=== PATIENT | male | born 1960 | race Caucasian/White ===

== ENCOUNTER 2016-11-20 05:57 | Day surgery (SDC) | payer OTHER ==
[~2016-11-20] VITALS: Ht 195.6 cm; Wt 78.0 kg
[2016-11-20] MEDS ORDERED: LACTATED RINGERS 1,000 ML IV SCH (06:18)
[2016-11-20 06:19] VITALS: BP 125/79
[2016-11-20] MEDS ORDERED: LIDOCAINE 1%, 2ML SQ PRN (06:30)
[2016-11-20] MEDS ORDERED: OMEG1CAP34 PO (06:42)
[2016-11-20] MEDS ORDERED: CHOL500014 PO (06:42)
[2016-11-20] MEDS ORDERED: ASPI-496 PO (06:42)
[2016-11-20] MEDS ORDERED: MUPIROCIN OINT 2%, 22GM ONE (06:47)
[2016-11-20] MEDS ORDERED: COCAINE TOPICAL SOLN 4%, 4ML ONE (06:47)
[2016-11-20] MEDS ORDERED: OXYMETAZOLINE NASAL SPRAY 0.05%, 15ML ONE (06:47)
[2016-11-20] MEDS ORDERED: LIDOCAINE 0.5%-EPI 1:200K, 50ML ONE (06:48)
[2016-11-20 06:54] LABS: BLOOD UREA NITROGEN 13 mg/dL (7-18)
[2016-11-20] MEDS ORDERED: LIDOCAINE/PF 1%, 30ML ONE (07:04)
[2016-11-20] MEDS ORDERED: EPINEPHRINE 1 MG/ML, 1ML ONE (07:04)
[2016-11-20] MEDS ORDERED: FENTANYL PF 250 MCG/5ML ONE (07:12)
[2016-11-20] MEDS ORDERED: MIDAZOLAM 1 MG/ML, 2ML ONE (07:12)
[2016-11-20] MEDS ORDERED: ONDANSETRON 2MG/ML, 2ML IVPush PRN (08:00)
[2016-11-20] MEDS ORDERED: FENTANYL PF 100 MCG/2ML IV PRN (08:00)
[2016-11-20] MEDS ORDERED: hydrALAzine 20 MG/ML, 1ML IV PRN (08:00)
[2016-11-20] MEDS ORDERED: OXYcodone 5 MG/5 ML ORAL.SOL UDC PO PRN (08:00)
[2016-11-20] MEDS ORDERED: LABETALOL 5MG/ML, 20ML IV PRN (08:00)
[2016-11-20] MEDS ORDERED: HYDROmorphone 1 MG/ML, 1ML IV PRN (08:00)
[2016-11-20] MEDS ORDERED: PROMETHAZINE 25 MG/ML, 1ML IV PRN (08:00)
[2016-11-20] MEDS ORDERED: MIDAZOLAM 1 MG/ML, 2ML IV PRN (08:00)
[2016-11-20] MEDS ORDERED: MEPERIDINE/PF 25MG/0.5ML IVPush PRN (08:00)
[2016-11-20] MEDS ORDERED: ALBUTEROL SULFATE 2.5 MG/3 ML NPPB PRN (08:00)
[2016-11-20] MEDS ORDERED: ACETAMINOPHEN 325 MG TABLET PO PRN (08:00)
[2016-11-20] MEDS ORDERED: ACETAMINOPHEN 650 MG/20.3 ML UDC ONE (08:50)
[2016-11-20] MEDS ORDERED: OXYcodone 5 MG/5 ML ORAL.SOL UDC ONE (08:50)
[2016-11-20] MEDS ORDERED: ONDANSETRON 2MG/ML, 2ML ONE (10:56)
[2016-11-20] MEDS ORDERED: SUCCINYLCHOLINE 20 MG/ML, 10ML ONE (10:56)
[2016-11-20] MEDS ORDERED: CEFAZOLIN 1,000 MG ONE (10:56)
[2016-11-20] MEDS ORDERED: DEXAMETHASONE 4 MG/ML, 1ML ONE (10:56)
[2016-11-20] MEDS ORDERED: ROCURONIUM 10 MG/ML ONE (10:56)
[2016-11-20] MEDS ORDERED: PROPOFOL 10 MG/ML, 20ML ONE (10:56)
== END 2016-11-20 10:30 | disposition home or self-care (01) ==
LOC: OUT 05:57
PROVIDERS: ATTEND Otolaryngology Facial Plastic Surgery
DX: J32.8 Other chronic sinusitis (principal); I10 Essential (primary) hypertension; Z91.041 Radiographic dye allergy status
CPT/HCPCS: 31254; 31256; 36415; 71010; 80048; 85025; 87070; 87075; 87205; 88304; 93005; J0171; J0330; J0690; J1100; J2250; J2405; J2704; J3010; J3490; J7120

== ENCOUNTER 2020-07-21 10:09 | Outpatient (CLI) | payer OTHER ==
[~2020-07-21 10:09] MED LIST: ASPI-496 PO; CHOL500045 PO; OMEG1CAP34 PO
== END 2020-07-21 23:59 | disposition home or self-care (01) ==
LOC: CARD 10:09
PROVIDERS: ATTEND Family Medicine
DX: G62.9 Polyneuropathy, unspecified (principal); R29.898 Other symptoms and signs involving the musculoskeletal system; R53.1 Weakness; M25.531 Pain in right wrist
CPT/HCPCS: 95885; 95908